=== PATIENT | male | born 1985 | race Caucasian/White ===

== ENCOUNTER 2025-07-10 23:36 | Emergency (ER) | payer MEDICAID ==
[~2025-07-10] VITALS: Ht 167.6 cm; Wt 88.0 kg
[2025-07-10 23:38] VITALS: O2SAT 97
[2025-07-11] MEDS: IBUPROFEN 600MG TABLET PO ONE (00:14)
[2025-07-11] MEDS ORDERED: HYDR-4001 MT (01:23)
[2025-07-11] MEDS: HYDROCODONE/ACETAMINOPHEN 10/325MG TABLET PO ONE (01:54)
[2025-07-11 02:36] VITALS: BP 133/83; PULSE 80; RESP 16; TEMP 37.1; O2SAT 99
== END 2025-07-11 02:37 | disposition home or self-care (01) ==
LOC: ER 23:36
DX: S92.001A Unspecified fracture of right calcaneus, initial encounter for closed fracture (principal); X58.XXXA Exposure to other specified factors, initial encounter; Y93.89 Activity, other specified; Y92.89 Other specified places as the place of occurrence of the external cause; Y99.8 Other external cause status
CPT/HCPCS: 99284; 29515; 73610; 73630; A6449